=== PATIENT | male | born 1995 | race Caucasian/White ===

== ENCOUNTER 2017-11-12 17:59 | Emergency (ER) | payer SELFPAY ==
[2017-11-12] MEDS ORDERED: Docusate 100 MG CAP FS SCH (19:00)
== END 2017-11-12 20:06 | disposition home or self-care (01) ==
LOC: ERS 17:59
DX: H61.21 Impacted cerumen, right ear (principal); F17.210 Nicotine dependence, cigarettes, uncomplicated
CPT/HCPCS: 69209